=== PATIENT | female | born 1980 | race Caucasian/White ===

== ENCOUNTER 2021-06-09 08:30 | Outpatient (CLI) | payer OTHER | END 2021-06-09 08:35 | disposition home or self-care (01) | LOC: LAB 08:30 | PROVIDERS: ATTEND Obstetrics & Gynecology | DX: Z20.828 Contact with and (suspected) exposure to other viral communicable diseases (principal) ==

== ENCOUNTER 2021-06-11 06:00 | Day surgery (SDC) | payer OTHER | END 2021-06-11 18:50 | disposition home or self-care (01) | LOC: CIR.AMB 06:00 | PROVIDERS: ATTEND Obstetrics & Gynecology | DX: Z30.2 Encounter for sterilization (principal); Z20.822 Contact with and (suspected) exposure to COVID-19 ==

== ENCOUNTER 2022-05-19 14:23 | Outpatient (CLI) | payer OTHER | END 2022-05-19 14:38 | disposition home or self-care (01) | LOC: TOM 14:23 | PROVIDERS: ATTEND Otolaryngology | DX: J32.1 Chronic frontal sinusitis (principal) ==

== ENCOUNTER 2024-05-16 14:32 | Emergency (ER) | payer OTHER ==
[~2024-05-16] VITALS: Ht 167.6 cm; Wt 78.0 kg
[2024-05-16] MEDS ORDERED: CLARITIN5 MG (15:00)
[2024-05-16] MEDS ORDERED: SINGULAIR4 M1 PO (15:00)
[2024-05-16 17:31] LABS: HEMATOCRIT 39.2 % (36.0-45.00); MEAN CELL VOLUME 88.7 fL (80.00-100.00); MEAN CORPUSCULAR HEMOGLOBIN 29.4 pg (27.00-32.0); MEAN CORPUSCULAR HGB CONC 33.2 g/dl (32.0-36.0); PLATELET COUNT 314 K/uL (150-450); RED BLOOD COUNT 4.42 M/uL (4.00-6.00); RED CELL DISTRIBUTION WIDTH 14.5 % (11.5-14.5)
[2024-05-16 17:56] LABS: CALCIUM 9.2 mg/dL (8.5-10.1); CREATININE SERUM 0.7 mg/dL (0.55-1.02); GFR 92.21; POTASSIUM 4.49 mEq/L (3.5-5.1)
== END 2024-05-16 19:26 | disposition home or self-care (01) ==
LOC: ER 14:35
PROVIDERS: General Practice
DX: R42 Dizziness and giddiness (principal)